=== PATIENT | female | born 1940 | race Caucasian/White ===

== ENCOUNTER → 2016-11-28 | Outpatient (CLI) | payer MEDICARE, BC ==
[2016-11-29 14:08] LABS: t-TRANSGLUTAMINASE (tTG) IgG 17 U/mL (0-5)
== END | disposition home or self-care (01) ==
LOC: LAB 11:04
PROVIDERS: Internal Medicine Gastroenterology
DX: R19.7 Diarrhea, unspecified (principal)

== ENCOUNTER → 2017-01-04 | Outpatient (CLI) | payer MEDICARE, BC ==
[2017-01-04 09:20] LABS: BASO % 0.3 % (0.0-1.0); EOS # 0.1 10*3/uL (0.0-0.4); HEMATOCRIT 37.5 % (37.0-47.0); LYMPH # 2.7 10*3/uL (1.3-4.4); MEAN CELL VOLUME 87.4 fl (81.0-99.0); MEAN PLATELET VOLUME 11.1 fl (9.6-12.3); MONO # 0.5 10*3/uL (0.1-1.0); MONO % 7.8 % (3.0-9.0); NEUT # 3.2 10*3/uL (2.3-7.9); NEUT % 48.7 % (47.0-73.0); PLATELET COUNT AUTOMATED 220 10*3/uL (130-400); RED BLOOD COUNT 4.29 10*6/uL (4.10-5.10); RED CELL DISTRI WIDTH 13.6 % (0-14.5); WHITE BLOOD COUNT 6.5 10*3/uL (4.8-10.8)
[2017-01-04 09:48] LABS: ALBUMIN 3.4 gm/dl (3.1-4.5); ALKALINE PHOSPHATASE 60 U/L (45-117); BILIRUBIN, DIRECT < 0.1 mg/dL (0.0-0.2); BILIRUBIN, TOTAL 0.3 mg/dl (0.2-1.0); BUN 15 mg/dl (7-24); CARBON DIOXIDE 30 mmol/L (21-32); CHLORIDE 105 mmol/L (98-107); CHOLESTEROL 213 mg/dL (<200); EST GLOM FILT AFRICAN AMERICAN > 60 ml/min; FREE T4 1.22 ng/dl (0.76-1.46); GLUCOSE 90 mg/dL (65-99); HDL CHOLESTEROL 82 mg/dl (40-60); LDL CHOLESTEROL 117 mg/dL (9-159); SGOT/AST 20 IU/L (3-35); SGPT/ALT 13 U/L (12-78); SODIUM 144 mmol/L (136-145); TOTAL PROTEIN 6.8 gm/dL (6.4-8.2); TRIGLYCERIDES 71 mg/dl (<150); VLDL CHOLESTEROL 14 mg/dL (6-40)
[2017-01-04 09:53] LABS: THYROID STIM HORMONE (HS) 0.236 uIU/ml (0.358-4.75)
== END | disposition home or self-care (01) ==
LOC: LAB 08:51
PROVIDERS: Family Medicine
DX: I10 Essential (primary) hypertension (principal); E03.9 Hypothyroidism, unspecified; E78.4 Other hyperlipidemia; E55.9 Vitamin D deficiency, unspecified; E89.0 Postprocedural hypothyroidism

== ENCOUNTER → 2017-03-29 | Outpatient (CLI) | payer MEDICARE, BC | END | disposition home or self-care (01) | LOC: US 03-28 09:30 → CARD 03-28 13:00 → US 09:09 | DX: I25.10 Atherosclerotic heart disease of native coronary artery without angina pectoris (principal); I65.23 Occlusion and stenosis of bilateral carotid arteries ==

== ENCOUNTER → 2018-11-08 | Day surgery (SDC) | payer MEDICARE, BC ==
[~2018-11-08] VITALS: Ht 154.9 cm; Wt 44.5 kg
[~2018-11-08] MED LIST: AMINOPHYLLIN200 MG PO; BUSPIRONE10 MG PO; CEFUROXIME AXE500 MG PO; CITALOPRAM20 MG PO; Clopidogrel75 MG PO; GAVISCON ES TA1 EACH PO; LEVOXYL75 MCG PO; LOMOTIL 2.5-0.1 EACH PO; LOPRESSOR25 MG PO; MEGESTROL625 MG/5 M PO; MIRTAZAPINE15 M2 PO; NAMENDA10 MG PO; OMEPRAZOLE40 MG PO; OXYBUTYNIN CHLOR5 M1 PO; PANTOPRAZOLE SO40 MG PO; PROTONIX20 MG PO; SEROQUEL25 MG PO; VITAMIN D-32000 UNI1 PO; ZANTAC 150150 MG PO
--- NOTE | ~2018-11-08 | PROC NOTE ---
[place], [place] PROCEDURE NOTE NAME: [facility]CKOY [facility] [id number] UNIT #: [id number] ROOM: DOCTOR: JOHNATHAN HODGES MD BIRTHDATE: [birth year] DOS: 11/08/2018 PREOPERATIVE DIAGNOSIS: Epigastric and substernal pain. POSTOPERATIVE DIAGNOSIS: Gastritis. PROCEDURE: EGD with antral biopsies x 2. ENDOSCOPIST: Johnathan Hodges M.D. ALLERGIST/PEDIATRIC PULMONOLOGIST: JANAY. ANESTHESIA: MAC. INDICATIONS: This is a 78-year-old lady here for a workup for epigastric and substernal pain. The procedure and its complications were explained to the patient and her daughter in detail preoperatively. Complications that were discussed included but were not limited to bleeding, missed lesions and stomach perforation. She agreed to proceed. DESCRIPTION OF PROCEDURE: After identifying the patient, the patient was brought to the endoscopy suite and placed in the left lateral position. After time-out procedure was called, IV sedation was administered by the anesthesia team. A bite block was placed. An adult gastroscope was introduced into the mouth and advanced sequentially into the pharynx, esophagus, stomach and the first 2 parts of the duodenum. There was found to be mild gastritis for which two antral biopsies were taken. The duodenum and the esophagus were within normal limits. The scope was then withdrawn and the patient was brought back to the recovery room in stable fashion. Based on these findings, the patient will be continued on her Prilosec as well as the Protonix and I will follow up on the biopsy results and let her know in 2 weeks when she follows up in the office. Johnathan Hodges MD CM:PROCNOTE:PROCEDURE NOTE [id number] JOHNATHAN HODGES MD
[2018-11-08 10:20] VITALS: BP 124/72
[2018-11-08 11:05] VITALS: BP 143/58
[2018-11-08 11:20] VITALS: BP 118/51
[2018-11-08 11:35] VITALS: BP 119/50
[2018-11-08 11:50] VITALS: BP 124/53
== END | disposition home or self-care (01) ==
LOC: SDC 11-05 09:30
DX: K29.50 Unspecified chronic gastritis without bleeding (principal); K21.9 Gastro-esophageal reflux disease without esophagitis; F32.9 Major depressive disorder, single episode, unspecified; F03.90 Unspecified dementia, unspecified severity, without behavioral disturbance, psychotic disturbance, mood disturbance, and anxiety; Z87.19 Personal history of other diseases of the digestive system; Z90.710 Acquired absence of both cervix and uterus; Z90.49 Acquired absence of other specified parts of digestive tract; Z98.890 Other specified postprocedural states; Z79.899 Other long term (current) drug therapy

== ENCOUNTER 2019-02-19 15:37 | Emergency (ER) | payer MEDICARE, BC ==
[~2019-02-19] VITALS: Ht 154.9 cm; Wt 42.6 kg
[2019-02-19 16:09] LABS: BASO % 0.3 % (0.0-1.0); EOS # 0.1 10*3/uL (0.0-0.4); EOS % 1.1 % (1.0-4.0); HEMATOCRIT 38.4 % (37.0-47.0); HEMOGLOBIN 12.4 g/dl (12.0-16.0); LYMPH # 2.9 10*3/uL (1.3-4.4); LYMPH % 41.6 % (27.0-41.0); MEAN CELL VOLUME 90.4 fl (81.0-99.0); MEAN CORPUSCULAR HGB 29.2 pg (27.0-31.0); MEAN CORPUSCULAR HGB CONC 32.3 g/dl (33.0-37.0); MEAN PLATELET VOLUME 10.9 fl (9.6-12.3); MONO # 0.6 10*3/uL (0.1-1.0); NEUT # 3.4 10*3/uL (2.3-7.9); NEUT % 48.7 % (47.0-73.0); PLATELET COUNT AUTOMATED 204 10*3/uL (130-400); RED BLOOD COUNT 4.25 10*6/uL (4.10-5.10); RED CELL DISTRI WIDTH 13.3 % (0-14.5)
[2019-02-19 16:22] LABS: CREATININE 1.11 mg/dL (0.55-1.02); POTASSIUM 4.4 mmol/L (3.5-5.1)
[2019-02-19 17:38] LABS: BILIRUBIN NEGATIVE (NEGATIVE); BLOOD NEGATIVE (NEGATIVE); CLARITY CLEAR (CLEAR); COLOR YELLOW (YELLOW); GLUCOSE NEGATIVE (NEGATIVE); KETONE NEGATIVE (NEGATIVE); LEUKO ESTERASE TRACE (NEGATIVE); NITRITE NEGATIVE (NEGATIVE); SPECIFIC GRAVITY <= 1.005 (1.005-1.030); UROBILINOGEN 0.2 E.U./dl (0.2-1.0)
[2019-02-19 17:44] LABS: BACTERIA TRACE
== END 2019-02-19 17:25 | disposition home or self-care (01) ==
LOC: ED 15:37
PROVIDERS: Emergency Medicine
DX: R51 Headache (principal); R41.0 Disorientation, unspecified; I25.10 Atherosclerotic heart disease of native coronary artery without angina pectoris; K21.9 Gastro-esophageal reflux disease without esophagitis; I10 Essential (primary) hypertension; F03.90 Unspecified dementia, unspecified severity, without behavioral disturbance, psychotic disturbance, mood disturbance, and anxiety; Z90.710 Acquired absence of both cervix and uterus; Z98.890 Other specified postprocedural states; Z90.49 Acquired absence of other specified parts of digestive tract; Z79.899 Other long term (current) drug therapy

== ENCOUNTER → 2019-07-03 | Outpatient (CLI) | payer MEDICARE, BC ==
[~2019-07-03] MED LIST changes: +BUSPIRONE HCL10 MG PO; +MIDODRINE HCL5 M1 PO; +QUETIAPINE FUMA25 MG PO
[2019-07-03 14:06] LABS: BASO % 0.5 % (0.0-1.0); EOS # 0.2 10*3/uL (0.0-0.4); EOS % 1.9 % (1.0-4.0); HEMATOCRIT 40.5 % (37.0-47.0); HEMOGLOBIN 12.8 g/dl (12.0-16.0); LYMPH # 2.8 10*3/uL (1.3-4.4); LYMPH % 31.3 % (27.0-41.0); MEAN CELL VOLUME 90.6 fl (81.0-99.0); MEAN CORPUSCULAR HGB 28.6 pg (27.0-31.0); MEAN CORPUSCULAR HGB CONC 31.6 g/dl (33.0-37.0); MEAN PLATELET VOLUME 10.5 fl (9.6-12.3); MONO # 0.9 10*3/uL (0.1-1.0); MONO % 10.6 % (3.0-9.0); NEUT # 4.9 10*3/uL (2.3-7.9); NEUT % 55.5 % (47.0-73.0); PLATELET COUNT AUTOMATED 233 10*3/uL (130-400); RED BLOOD COUNT 4.47 10*6/uL (4.10-5.10); RED CELL DISTRI WIDTH 12.9 % (0-14.5); WHITE BLOOD COUNT 8.8 10*3/uL (4.8-10.8)
[2019-07-03 14:22] LABS: ALBUMIN 3.5 gm/dl (3.1-4.5); CREATININE 1.13 mg/dL (0.55-1.02); POTASSIUM 3.8 mmol/L (3.5-5.1); TOTAL PROTEIN 7.2 gm/dL (6.4-8.2)
[2019-07-03 14:30] LABS: THYROID STIM HORMONE (HS) 0.8 uIU/ml (0.358-4.75)
[2019-07-03 15:01] LABS: BILIRUBIN NEGATIVE (NEGATIVE); BLOOD TRACE-LYSED (NEGATIVE); CLARITY SL CLOUDY (CLEAR); COLOR YELLOW (YELLOW); GLUCOSE NEGATIVE (NEGATIVE); KETONE NEGATIVE (NEGATIVE); LEUKO ESTERASE TRACE (NEGATIVE); NITRITE NEGATIVE (NEGATIVE); PH 6.5 (5.0-9.0); UROBILINOGEN 0.2 E.U./dl (0.2-1.0)
[2019-07-03 15:25] LABS: BACTERIA 1+; RBC 0-2 rbc/hpf (0-2)
== END | disposition home or self-care (01) ==
LOC: LAB 13:42
PROVIDERS: Nurse Practitioner Family
DX: R44.3 Hallucinations, unspecified (principal); E03.9 Hypothyroidism, unspecified; R30.0 Dysuria

== ENCOUNTER 2019-07-22 14:55 | Inpatient (IN) | payer MEDICARE, BC ==
[~2019-07-22] VITALS: Ht 154.9 cm; Wt 43.3 kg
[~2019-07-22 14:55] MED LIST changes: -BUSPIRONE HCL10 MG PO; -MIDODRINE HCL5 M1 PO; -QUETIAPINE FUMA25 MG PO
[2019-07-22 14:57] VITALS: BP 115/68
[2019-07-22 16:01] LABS: BASO % 0.5 % (0.0-1.0); EOS # 0.1 10*3/uL (0.0-0.4); EOS % 2.1 % (1.0-4.0); HEMATOCRIT 38.7 % (37.0-47.0); HEMOGLOBIN 12.7 g/dl (12.0-16.0); LYMPH # 2.5 10*3/uL (1.3-4.4); LYMPH % 38.2 % (27.0-41.0); MEAN CELL VOLUME 89.4 fl (81.0-99.0); MEAN CORPUSCULAR HGB 29.3 pg (27.0-31.0); MEAN CORPUSCULAR HGB CONC 32.8 g/dl (33.0-37.0); MONO # 0.6 10*3/uL (0.1-1.0); MONO % 9.2 % (3.0-9.0); NEUT # 3.3 10*3/uL (2.3-7.9); NEUT % 49.8 % (47.0-73.0); PLATELET COUNT AUTOMATED 201 10*3/uL (130-400); RED BLOOD COUNT 4.33 10*6/uL (4.10-5.10); RED CELL DISTRI WIDTH 12.6 % (0-14.5); WHITE BLOOD COUNT 6.6 10*3/uL (4.8-10.8)
[2019-07-22 16:15] VITALS: BP 109/69
[2019-07-22 16:15] LABS: ALBUMIN 3.5 gm/dl (3.1-4.5); ALKALINE PHOSPHATASE 61 U/L (45-117); BUN 23 mg/dl (7-24); CHLORIDE 105 mmol/L (98-107); CREATININE 1.16 mg/dL (0.55-1.02); LIPASE 158 U/L (73-393); POTASSIUM 4.2 mmol/L (3.5-5.1); SGOT/AST 21 IU/L (3-35); SGPT/ALT 18 U/L (12-78); SODIUM 140 mmol/L (136-145); TOTAL PROTEIN 6.8 gm/dL (6.4-8.2)
[2019-07-22 16:17] LABS: ACT PARTIAL THROMBO TIME 23.8 SECONDS (20.0-32.1)
[2019-07-22 16:18] LABS: TROPONIN I < 0.015 ng/ml (<0.045)
[2019-07-22 17:20] VITALS: BP 110/74
[2019-07-22 17:26] LABS: BILIRUBIN NEGATIVE (NEGATIVE); BLOOD TRACE-LYSED (NEGATIVE); CLARITY CLEAR (CLEAR); COLOR YELLOW (YELLOW); GLUCOSE NEGATIVE (NEGATIVE); KETONE NEGATIVE (NEGATIVE); LEUKO ESTERASE NEGATIVE (NEGATIVE); NITRITE NEGATIVE (NEGATIVE); SPECIFIC GRAVITY <= 1.005 (1.005-1.030); UROBILINOGEN 0.2 E.U./dl (0.2-1.0)
[2019-07-22 17:33] LABS: EPITHELIAL CELLS 21-30
[2019-07-22 17:34] LABS: HYALINE CAST 21-30; RBC 0-2 rbc/hpf (0-2); WBC 0-2 wbc/hpf (0-5)
[2019-07-22 18:30] VITALS: BP 112/62
--- NOTE | 2019-07-22 19:00 | NUR ---
BED NOT READY, WAITING FOR IT TO BE CLEANED.
--- NOTE | 2019-07-22 19:16 | NUR ---
NURSE TO NURSE REPORT GIVEN TO THIS RN.PT AWAITING BED ASSIGMENT FOR ADMISSION TO UNIT.
--- NOTE | 2019-07-22 19:23 | NUR ---
HELMET COVERER TOLD BY MAKE UP OPERATOR HELPER THAT PATIENT COULD COME IN UP 5 MINUTES, LINENS ARE BEING PUT ON THE BED
--- NOTE | 2019-07-22 19:23 | NUR ---
ADVISED BY CHOPPED STRAND OPERATOR ON UNIT ROOM IS BEING CLEANED AND WILL BE READY SHORTLY.
--- NOTE | 2019-07-22 19:27 | NUR ---
PT AND FAMILY DENY ANY OPEN WOUNDS OR SORES.
[2019-07-22 20:10] VITALS: BP 143/60
--- NOTE | 2019-07-22 20:10 | NUR ---
Time: 2009 A 79 year old FEMALE admitted to 5E under services of HUDSON ALVAREZ DO, Pt. arrived via stretcher from ER. Chief complaint: WEAKNESS. KAELA MILTON
--- NOTE | 2019-07-22 20:10 | NUR ---
NURSE TO NURSE GIVEN TO NARESH SHERWOOD AT BEDSIDE.PT TO UNIT VIA STRETCHER AT THIS TIME.
--- NOTE | 2019-07-22 20:12 | NUR ---
1L NS INFUSION COMPLETED.
--- NOTE | 2019-07-22 21:02 | NUR ---
DR BARNARD AWARE OF CONSULT. STATES DR LINARES WILL SEE PATIENT IN THE MORNING. NO ORDERS TAKEN AT THIS TIME
[2019-07-22] MEDS ORDERED: OMEPRAZOLE40 MG PO (22:13)
[2019-07-22] MEDS ORDERED: BUSPIRONE HCL10 MG PO (22:15)
[2019-07-22] MEDS ORDERED: CITALOPRAM20 MG PO (22:20)
[2019-07-22] MEDS ORDERED: QUETIAPINE FUMA25 MG PO (22:21)
--- NOTE | 2019-07-22 22:24 | NUR ---
MED REC COMPLETED WITH LIST FROM HOME. COPY MADE AND PLACED ON CHART. DR VEGA AWARE
--- NOTE | 2019-07-22 22:57 | NUR ---
DR VEGA AWARE OF POSITIVE ORTHOS.
--- NOTE | 2019-07-22 22:57 | NUR ---
THIS RN AND NARESH RANKIN CHECKED SACRUM FOR DTI. NOTHING SEEN
[2019-07-23] VITALS: BP 110/49
--- NOTE | 2019-07-23 02:16 | NUR ---
PATIENT RESTING IN BED WITH EYES CLOSED. NO S/S OF DISTRESS. BED ALARM ON, BED IN LOW POSITION, CALL LIGHT IN REACH
[2019-07-23 06:23] LABS: BASO % 0.3 % (0.0-1.0); EOS # 0.2 10*3/uL (0.0-0.4); EOS % 2.8 % (1.0-4.0); HEMATOCRIT 33.2 % (37.0-47.0); HEMOGLOBIN 10.9 g/dl (12.0-16.0); LYMPH # 2.6 10*3/uL (1.3-4.4); LYMPH % 42.1 % (27.0-41.0); MEAN CELL VOLUME 88.1 fl (81.0-99.0); MEAN CORPUSCULAR HGB 28.9 pg (27.0-31.0); MEAN CORPUSCULAR HGB CONC 32.8 g/dl (33.0-37.0); MEAN PLATELET VOLUME 11.2 fl (9.6-12.3); MONO # 0.6 10*3/uL (0.1-1.0); MONO % 9.5 % (3.0-9.0); NEUT # 2.8 10*3/uL (2.3-7.9); NEUT % 45.1 % (47.0-73.0); PLATELET COUNT AUTOMATED 178 10*3/uL (130-400); RED BLOOD COUNT 3.77 10*6/uL (4.10-5.10); RED CELL DISTRI WIDTH 12.8 % (0-14.5); WHITE BLOOD COUNT 6.1 10*3/uL (4.8-10.8)
[2019-07-23 06:49] LABS: BUN 16 mg/dl (7-24); CHLORIDE 109 mmol/L (98-107); POTASSIUM 3.6 mmol/L (3.5-5.1); SODIUM 141 mmol/L (136-145)
[2019-07-23 07:03] LABS: FREE T4 1.02 ng/dl (0.76-1.46); PHOSPHOROUS 3.4 mg/dL (2.5-4.9)
[2019-07-23 08:00] VITALS: BP 122/56
--- NOTE | 2019-07-23 08:01 | NUR ---
PHYSICAL THERAPY Screen received as well as orders for Physical Therapy will follow Flor Evangelista PT
--- NOTE | 2019-07-23 08:06 | NUR ---
Face to face encounter with Dr. Maldonado see new orders.
--- NOTE | 2019-07-23 09:00 | NUR ---
case management visits with patient, daughter present, patient unable at this time to answer any questions, daughter present stated that her mom lives with her sister and the sister would be in this morning and would answer any questions. case management will see later today when the daughter Aung is present
--- NOTE | 2019-07-23 11:05 | NUR ---
Pupil Personnel Worker in to talk to patient. Patient states lives at home with daughter. There are few steps in the home. Physician: julissa lu Pharmacy: [facility] Home health services: none Patient's level of ADLs: MINIMAL ASSIST Patient has working utilities: all working DME: walker Follow-up physician's appointment after d/c: will be made by hospitalist nurse director upon discharge Does patient want to access PORTAL?: no Discharge plan discussed with daughter Aung, patient lives at home with her, she uses a walker for ambulation and requires assistance with adls, discussed with them patient having numerous falls. educated her on area skilled nursings for 5 days of physical therapy and occupational therapy and 24 hour care. Aung stated she did not want her mom going to a skilled facility at this time, also educated her on VNA, Aung stated they had VNA services prevously and would like them again, given choice of companies she chose [facility], will send a referral to [facility] for when patient is medically stable for discharge, case management will follow. JAVON WEBSTER
[2019-07-23 12:00] VITALS: BP 137/56
--- NOTE | 2019-07-23 13:38 | NUR ---
Consults called for for med management and [facility] magen.
--- NOTE | 2019-07-23 14:15 | NUR ---
Occupational Therapy evaluation completed on 5 with full eval to follow. Precautions include fall risk;bed/chair alarm,generalized weakness, dementia, poor stand balance, new ww use per dtr, moderate complexity level 40017. Recommend OT per POC and SNF upon d/c. Daughter insists upon home w/ home health. Recommend home w/ 24hr supervision/assist and home h ealth SN,OT/PT. Thank you. Rekha Goldstein OTR/l
--- NOTE | 2019-07-23 14:42 | NUR ---
PHYSICAL THERAPY Rita completed full report to follow recomend SNF at discharge however per daughter Aung will take her mother home and is agreeable to HH at this time. PT to work on transfers, strenghthening, amb with FWW, balance and safety. Thank you Flor Evangelista PT
[2019-07-23 16:00] VITALS: BP 128/49
--- NOTE | 2019-07-23 19:32 | NUR ---
PATIENT SITTING IN CHAIR AT BEDSIDE. DAUGHTER TOMMY PRESENT. PATIENT DENIES ANY NEEDS AT THIS TIME. BODY ALARM INTACT. CALL LIGHT IN REACH
[2019-07-23 20:00] VITALS: BP 164/72
[2019-07-24] VITALS: BP 139/64
--- NOTE | 2019-07-24 00:36 | NUR ---
PATIENT SET BED ALARM OFF AGAIN. UPON ENTERING ROOM PATIENT WAS ON THE FLOOR. VITALS STABLE AND DR ALONZO NOTIFIED. PATIENT STATES SHE HIT HER HEAD ON THE WALL. PATIENT ASSISTED BACK TO BED. 1:1 SITTER ORDERED BY DOCTOR
[2019-07-24 00:38] VITALS: BP 165/76
--- NOTE | 2019-07-24 00:45 | NUR ---
DR VEGA AWARE OF PATIENT C/O "HEAD HURTING REALLY BAD". STATES TO CHANGE HEAD CT TO STAT
--- NOTE | 2019-07-24 00:52 | NUR ---
DAUGHTER TOMMY NOTIFIED OF FALL
--- NOTE | 2019-07-24 01:00 | NUR ---
SECOND ATTEMPT MADE TO CT SCAN. NO ANSWER
--- NOTE | 2019-07-24 01:27 | NUR ---
PATIENT BACK FROM CT SCAN. SITTING IN KRISTA-CHAIR AT NURSES STATION WITH THIS RN
--- NOTE | 2019-07-24 01:58 | NUR ---
PATIENT DENYING TYLENOL FOR HEADACHE AT THIS TIME.
--- NOTE | 2019-07-24 02:29 | NUR ---
PATIENT REMAINS IN LUCRECIA-CHAIR AT NURSES STATION. GETTING INCREASINGLY AGITATED AND TRYING TO REMOVE THE TABLE TO THE LUCRECIA-CHAIR. PATIENT STATES "I HAVE TO GO ACROSS THE STREET TO MY HOUSE. I HAVE OBLIGATIONS". ATTEMPTED TO REORIENT PATIENT TO TIME AND PLACE. PATIENT STATES "YOU CANNOT TELL ME WHAT TO DO".
--- NOTE | 2019-07-24 03:56 | NUR ---
24 HR chart check completed.
--- NOTE | 2019-07-24 06:32 | NUR ---
DAUGHTER TOMMY AT BEDSIDE. PATIENT BACK IN ROOM IN RECLINER CHAIR WITH BODY ALARM. TOMMY STATES WHILE SHE IS PRESENT IN THE ROOM SHE DOES NOT WANT THE 1:1 SITTER. JOB ESTIMATOR MADE AWARE
[2019-07-24 06:59] LABS: BASO % 0.5 % (0.0-1.0); EOS # 0.1 10*3/uL (0.0-0.4); EOS % 1.2 % (1.0-4.0); HEMATOCRIT 34.7 % (37.0-47.0); HEMOGLOBIN 11.4 g/dl (12.0-16.0); LYMPH # 2.4 10*3/uL (1.3-4.4); LYMPH % 31.6 % (27.0-41.0); MEAN CELL VOLUME 88.1 fl (81.0-99.0); MEAN CORPUSCULAR HGB 28.9 pg (27.0-31.0); MEAN CORPUSCULAR HGB CONC 32.9 g/dl (33.0-37.0); MEAN PLATELET VOLUME 11.3 fl (9.6-12.3); MONO # 0.7 10*3/uL (0.1-1.0); MONO % 8.8 % (3.0-9.0); NEUT # 4.4 10*3/uL (2.3-7.9); NEUT % 57.6 % (47.0-73.0); PLATELET COUNT AUTOMATED 197 10*3/uL (130-400); RED BLOOD COUNT 3.94 10*6/uL (4.10-5.10); RED CELL DISTRI WIDTH 12.9 % (0-14.5); WHITE BLOOD COUNT 7.6 10*3/uL (4.8-10.8)
[2019-07-24 07:19] LABS: BUN 7 mg/dl (7-24); CHLORIDE 109 mmol/L (98-107); CREATININE 0.86 mg/dL (0.55-1.02); POTASSIUM 3.7 mmol/L (3.5-5.1); SODIUM 140 mmol/L (136-145)
[2019-07-24 08:00] VITALS: BP 158/55
--- NOTE | 2019-07-24 09:00 | NUR ---
case management visits with patient, daughter Aung present, she states patient is possibly being discharged to home today, she will transport patient when discharged, case management will notify [facility] when patient is discharged, daughter denies any other home needs
--- NOTE | 2019-07-24 09:46 | NUR ---
OT NOTE Pt was seen this A.M. 1:1 for 15 minute OT session. Upon arrival pt was sitting upright in the recliner. Pt identified by name and and had no complaints at this time. Sit to stand completed from chair level with Alice and use of w/w for UE support. Upon inital rise pt had LOB backwards that required Alice to correct. Functional mobility was then completed into the bathroom with Alice and use of w/w, pt required verbal and tactile prompts for walker safety,, navigation, and for wider base of support. Pt transferred on/off standard commode with Alice. Functional mobility then completed back to the recliner where she was left sitting uproght with call light in hand, tray table in place, and body alarm activated for safety. Continue with rec D/C plan to SNF. TAYE Floyd/Erich
[2019-07-24] MEDS ORDERED: SEROQUEL25 MG PO (10:47)
[2019-07-24] MEDS ORDERED: MIDODRINE HCL5 M1 PO (10:47)
--- NOTE | 2019-07-24 10:47 | NUR ---
PHYSICAL THERAPY Patient presented to therapy in sitting in bedside chair bartolome rayo two daughters visiting with her in the room. Patient has chair alarm attached and report of no pain. Patient is pleasantly confused. Patient was identified by name and on wristband. Patient's daughter says that the patient is more confused than usual and weaker than normal. They also said she was Independent at home before this happenned. Patient performed sit to stand out of bedside chair with MIN A X 2 with verbal cues for proper hand placement and scooting to edge of chair before standing. Patient ambulated with Wh Walker and CGA X 1 with other therapist managing the IV pole that is infusing for 60' x 1. Patient required constand verbal cues and visual demonstrations of wider ROB due to the patient ambulating with feet too close together. Patient had a few episodes where she lost balance and became retro-grade back on her heels. This required MIN A X 1 to correct LOB. Patient transferred back TO BEDSIDE CHAIR and sat wit hMIN A X 1 and verbal cues for letting go of walker and putting hands back on the chair armrests. Patient sits with her knees locked into extension which creates a fall risk. Patient is pleasantly confused. Patient was left with call light within reach, chair alarm tested and attached to patient and two daughters visiting in the room. Patient was left with PCT CLYDE. Patient was 1:1 with this EXPANDER for 18 minutes total. LEFT ROOM AT 9:46 AM. MARYCRUZ THOMPSON EXPANDER
--- NOTE | 2019-07-24 11:40 | NUR ---
Discharge instructions reviewed with patient/family. Patient receptive and verbalizes understanding. Follow-up care arranged. Written instructions given to patient/family. TONY CHINCHILLA
[2019-07-24 11:54] VITALS: BP 141/67
--- NOTE | 2019-07-24 12:28 | NUR ---
case management notified Aliya at [facility] that patient is being discharged to home today
--- NOTE | 2019-07-25 08:00 | NUR ---
PHYSICAL THERAPY CO-SIGN I approve of the Physical Therapy notes written above. Flor Evangelista PT
== END 2019-07-24 11:40 | disposition home health service (06) | DRG 391 ==
LOC: ED 14:55 → 5E 17:45 → EDHOLD 17:45 → 5E 18:12
PROVIDERS: Emergency Medicine; Internal Medicine; ADMIT Internal Medicine
DX: K21.9 Gastro-esophageal reflux disease without esophagitis (principal); N17.0 Acute kidney failure with tubular necrosis; G93.41 Metabolic encephalopathy; F03.91 Unspecified dementia, unspecified severity, with behavioral disturbance; Z68.1 Body mass index [BMI] 19.9 or less, adult; E86.0 Dehydration; R91.8 Other nonspecific abnormal finding of lung field; R26.81 Unsteadiness on feet; I25.10 Atherosclerotic heart disease of native coronary artery without angina pectoris; L98.429 Non-pressure chronic ulcer of back with unspecified severity; E83.41 Hypermagnesemia; K58.9 Irritable bowel syndrome, unspecified; R63.4 Abnormal weight loss; E03.9 Hypothyroidism, unspecified; F32.9 Major depressive disorder, single episode, unspecified; I10 Essential (primary) hypertension; D64.9 Anemia, unspecified; I95.1 Orthostatic hypotension; T50.995A Adverse effect of other drugs, medicaments and biological substances, initial encounter; Y92.89 Other specified places as the place of occurrence of the external cause; Z91.81 History of falling; Z87.440 Personal history of urinary (tract) infections; Z90.49 Acquired absence of other specified parts of digestive tract; Z98.891 History of uterine scar from previous surgery; Z90.710 Acquired absence of both cervix and uterus; Z90.79 Acquired absence of other genital organ(s); Z90.722 Acquired absence of ovaries, bilateral; Z81.1 Family history of alcohol abuse and dependence; Z79.899 Other long term (current) drug therapy; Z79.02 Long term (current) use of antithrombotics/antiplatelets

== ENCOUNTER 2020-01-13 10:20 | Inpatient (IN) | payer MEDICARE, BC ==
[~2020-01-13] VITALS: Ht 149.8 cm; Wt 39.9 kg
[~2020-01-13 10:20] MED LIST changes: +BUSPIRONE HCL10 MG PO; +MIDODRINE HCL5 M1 PO; +QUETIAPINE FUMA25 MG PO
[2020-01-13 10:35] VITALS: BP 116/63
[2020-01-13 12:09] LABS: BASO % 0.4 % (0.0-1.0); EOS % 0.5 % (1.0-4.0); HEMATOCRIT 41.3 % (37.0-47.0); LYMPH # 2.3 10*3/uL (1.3-4.4); LYMPH % 30.6 % (27.0-41.0); MEAN CELL VOLUME 89.2 fl (81.0-99.0); MEAN CORPUSCULAR HGB 29.2 pg (27.0-31.0); MEAN CORPUSCULAR HGB CONC 32.7 g/dl (33.0-37.0); MEAN PLATELET VOLUME 10.7 fl (9.6-12.3); MONO # 0.6 10*3/uL (0.1-1.0); MONO % 7.6 % (3.0-9.0); NEUT # 4.6 10*3/uL (2.3-7.9); NEUT % 60.6 % (47.0-73.0); PLATELET COUNT AUTOMATED 238 10*3/uL (130-400); RED BLOOD COUNT 4.63 10*6/uL (4.10-5.10); RED CELL DISTRI WIDTH 13.3 % (0-14.5); WHITE BLOOD COUNT 7.6 10*3/uL (4.8-10.8)
--- NOTE | 2020-01-13 12:15 | NUR ---
ATTEMPTED TO COLLECT URINE SPECIMEN. PT STATES THAT SHE IS UNABLE TO URINATE AT THIS TIME. BEDSIDE COMMODE IN PLACE. WILL CONTINUE TO MONITOR.
[2020-01-13 12:20] LABS: ACT PARTIAL THROMBO TIME 23.6 SECONDS (20.0-32.1)
[2020-01-13 12:23] LABS: ALBUMIN 3.9 gm/dl (3.1-4.5); ALKALINE PHOSPHATASE 60 U/L (45-117); BUN 20 mg/dl (7-24); CHLORIDE 104 mmol/L (98-107); CREATININE 1.14 mg/dL (0.55-1.02); LIPASE 127 U/L (73-393); SGOT/AST 20 IU/L (3-35); SGPT/ALT 14 U/L (12-78); SODIUM 138 mmol/L (136-145); TOTAL PROTEIN 7.3 gm/dL (6.4-8.2)
[2020-01-13 12:27] LABS: TROPONIN I < 0.015 ng/ml (<0.045)
[2020-01-13 14:00] LABS: BILIRUBIN 1+ (NEGATIVE); BLOOD 1+ (NEGATIVE); CLARITY CLEAR (CLEAR); COLOR YELLOW (YELLOW); GLUCOSE NEGATIVE (NEGATIVE); KETONE 1+ (NEGATIVE); LEUKO ESTERASE 3+ (NEGATIVE); NITRITE NEGATIVE (NEGATIVE); UROBILINOGEN 0.2 E.U./dl (0.2-1.0)
[2020-01-13 14:01] LABS: RBC 0-2 rbc/hpf (0-2)
[2020-01-13 14:02] LABS: BACTERIA 1+
[2020-01-13 16:00] VITALS: BP 110/67
[2020-01-13 16:10] VITALS: BP 147/64
--- NOTE | 2020-01-13 16:10 | NUR ---
ER DENIED ANY WOUNDS. PT FOUND TO HAVE 2 TO FACE. PT IS CONFUSED AND CONSENT FOR PHOTOS FROM ER WAS NOT SIGNED, THEREFORE UNABLE TO PHOTO. WOUNDS DOCUMENTED IN DI SCREEN.
--- NOTE | 2020-01-13 16:10 | NUR ---
A 79, admitted to 5E, under the services of SADIA Yang DO with a diagnosis of UTI, DEHYDRATION. Chief complaint is FELL AT HOME. Patient arrived via stretcher from ER. Monitor applied. Initial assessment completed. Vital signs taken and recorded. SADIA YANG DO notified of admission to the unit. Orders received. See assessment for past medical history, medications and allergies. Patient and/or family oriented to unit. [address] visitation policy reviewed. Clothing/patient valuable form completed. GEOVANY ALEXANDER
[2020-01-13] MEDS ORDERED: QUETIAPINE FUMA25 MG PO (16:40)
--- NOTE | 2020-01-13 19:00 | NUR ---
AWAITING WOUND CARE ORDERS FOR FACIAL ABRASIONS.
[2020-01-13 20:00] VITALS: BP 136/66
--- NOTE | 2020-01-13 20:00 | NUR ---
PATIENT PLEASANTLY CONFUSED. ALERT TO SELF ONLY. CONTINUES TO CRAWL OUT OF BED AND WANTS TO LEAVE. REORIENTED FREQUENTLY. VOICES NO COMPLAINTS. BED IN LOWEST POSITION,CALL LIGHT WITHIN REACH. BED ALARM ON.
[2020-01-14] VITALS: BP 119/55
[2020-01-14 08:00] VITALS: BP 145/71
[2020-01-14 08:04] LABS: BASO % 0.4 % (0.0-1.0); EOS # 0.1 10*3/uL (0.0-0.4); EOS % 0.9 % (1.0-4.0); HEMATOCRIT 35.9 % (37.0-47.0); LYMPH # 2.5 10*3/uL (1.3-4.4); LYMPH % 32.1 % (27.0-41.0); MEAN CELL VOLUME 90.4 fl (81.0-99.0); MEAN CORPUSCULAR HGB 29.2 pg (27.0-31.0); MEAN CORPUSCULAR HGB CONC 32.3 g/dl (33.0-37.0); MEAN PLATELET VOLUME 11.8 fl (9.6-12.3); MONO # 0.6 10*3/uL (0.1-1.0); MONO % 8.1 % (3.0-9.0); NEUT # 4.5 10*3/uL (2.3-7.9); NEUT % 58.2 % (47.0-73.0); PLATELET COUNT AUTOMATED 206 10*3/uL (130-400); RED BLOOD COUNT 3.97 10*6/uL (4.10-5.10); RED CELL DISTRI WIDTH 13.2 % (0-14.5); WHITE BLOOD COUNT 7.8 10*3/uL (4.8-10.8)
[2020-01-14 08:15] LABS: BUN 16 mg/dl (7-24); CHLORIDE 110 mmol/L (98-107); CHOLESTEROL 207 mg/dL (<200); CREATININE 0.83 mg/dL (0.55-1.02); HDL CHOLESTEROL 62 mg/dl (40-60); LDL CHOLESTEROL 132 mg/dL (9-159); POTASSIUM 3.7 mmol/L (3.5-5.1); SODIUM 144 mmol/L (136-145); TRIGLYCERIDES 67 mg/dl (<150); VLDL CHOLESTEROL 13 mg/dL (6-40)
--- NOTE | 2020-01-14 08:53 | NUR ---
Patient resting quietly with no c/o discomfort. Respirations easy and regular. Vital signs stable. No overt distress. GEOVANY ALEXANDER
--- NOTE | 2020-01-14 08:54 | NUR ---
MCKOYGWENDOLYN [id number] Please refer to the physician's history and physical for past medical history, comorbid conditions, and allergies. Diagnosis: UTI DEHYDRATION Valente Score: 16,AT RISK WOUND DESCRIPTIONS: This nurse along with with Ana Maria Vyas RN evaluated patient for skin impairments. Wound Number: 1 Location of the wound: right cheek Type of wound: Scab Thickness: Partial Size: 0.4cm x 0.2cm x 0.1cm Tunneling: none Undermining: none Sinus Tract: none Presence of Exudate: none Amount: None Color: Red Odor: None Periwound Skin Appearance: Normal Wound edges: approximated Pain (associated with wound): none at time of assessment How does patient state this happened? pt stated she fell Wound Number: 2 Location of the wound: bridge of nose Type of wound: Scab Thickness: Partial Size: 0.3cm x 0.3cm x 0.1cm Tunneling: none Undermining: none Sinus Tract: none Presence of Exudate: none Amount: none Color: Red Odor: None Periwound Skin Appearance: Normal Wound edges: approximated Pain (associated with wound): none at time of assessment How does patient state this happened? pt stated she fell Surface the patient is resting on: Isoflex SKIN PREVENTION RECOMMENDATION: 1. Pressure redistribution support surface as appropriate 2. Elevate heels 3. Remove boots/TEDS every shift and reapply 4. Head of bed 30 degrees as tolerated 5. Assess nutrition and hydration 6. Manage moisture 7. Avoid the use of containment devices while in bed 8. Use absorptive products on surfaces limit layers of linens on bed 9. Turn and reposition every 1-2 hours in bed and every 1 hour in chair as tolerated 10. Weight shifts every 15 minutes while up in chair 11. Offloading with pillows or device to keep heels elevated off bed 12. Monitor skin at least every shift 13. Inspect under medical devices twice a day WOUND TREATMENT RECOMMENDATIONS: cleanse right cheek and bridge of nose with nss and apply bacitracin ointment and leave open to air tid.
--- NOTE | 2020-01-14 09:00 | NUR ---
DR PALOMINO REMINDED OF NEED FOR WOUND CARE ORDERS.
--- NOTE | 2020-01-14 09:30 | NUR ---
DAUGHTER/POA UPDATED ON PT'S CONDITION.
[2020-01-14 10:10] LABS: VITAMIN D, 25-HYDROXY 94.6 ng/mL (30-100)
--- NOTE | 2020-01-14 10:56 | NUR ---
Dr. Ugalde notified of wound care recommendations.
--- NOTE | 2020-01-14 10:57 | NUR ---
PHYSICAL THERAPY Physical Therapy evaluation completed on 4E with full evaluation to follow. Moderate complexity PT evaluation per chart review and evaluation, [id number]. Recommend physical therapy per plan of care and SNF upon discharge. Thank you for this referral. Shaina Thurston,PT,DPT.
[2020-01-14 12:00] VITALS: BP 129/57
--- NOTE | 2020-01-14 12:51 | NUR ---
Occupational Therapy evaluation completed on 5E with full evaluation to follow. Recommend occupational therapy per plan of care and SNF upon discharge. Thank you for this referral. Chapis Miller OTR/L
--- NOTE | 2020-01-14 14:58 | NUR ---
Associate Broker in to talk to patient. Patient states lives at HOME with DAUGHTER. There are FEW steps in the home. Physician: LEON MONROY [facility] Home health services: NONE Patient's level of ADLs: MODERATE ASSIST Patient has working utilities: YES DME: NONE Follow-up physician's appointment after d/c: WILL BE MADE BY HOSPITALIST NURSE DIRECTOR ON DISCHARGE Does patient want to access PORTAL?: NO Discharge plan PT LIVES AT HOME WITH HER DAUGHTER WHO CARES FOR HER. PT IS VERY CONFUSED. WILL CONTACT DAUGHTER TO DISCUSS DISCHARGE PLANS. WILL CONTINUE TO FOLLOW.. LUCAS OLVERA
--- NOTE | 2020-01-14 15:29 | NUR ---
Nutritional Support Services Note: Pt is confused. Scratches noted to right eye and bridge of nose. Appetite is good for meals, she receives a regular diet as ordered with Ensure po TId with meals. Staff to assist with meals and encourage intake. Assist as needed. No other nutrition intervention needed at this time. Will follow if needed. Estela Warren Rdn Ld
--- NOTE | 2020-01-14 15:30 | NUR ---
PT AT DESK IN [place]CR[place]IA CHAIR FOR EXCESSIVE ATTEMPTS AND SUCCESSES AT JESENIA THOMAS.
[2020-01-14 16:00] VITALS: BP 158/64
--- NOTE | 2020-01-14 19:00 | NUR ---
ASSUMED CARE FOR THIS PT AT THIS TIME. PT SITTING IN [place] CHAIR AT NURSES STATION. NO C/O VOICED PER PT.
[2020-01-14 20:00] VITALS: BP 122/64
[2020-01-15] VITALS: BP 105/52
--- NOTE | 2020-01-15 03:41 | NUR ---
Recommend follow up for wound care in outpatient setting patient refused at this time.
[2020-01-15 06:01] LABS: BASO % 0.4 % (0.0-1.0); EOS # 0.1 10*3/uL (0.0-0.4); EOS % 1.5 % (1.0-4.0); HEMATOCRIT 37.6 % (37.0-47.0); LYMPH # 3.1 10*3/uL (1.3-4.4); LYMPH % 39.9 % (27.0-41.0); MEAN CELL VOLUME 88.9 fl (81.0-99.0); MEAN CORPUSCULAR HGB 29.1 pg (27.0-31.0); MEAN CORPUSCULAR HGB CONC 32.7 g/dl (33.0-37.0); MEAN PLATELET VOLUME 11.6 fl (9.6-12.3); MONO # 0.7 10*3/uL (0.1-1.0); NEUT # 3.8 10*3/uL (2.3-7.9); NEUT % 48.9 % (47.0-73.0); PLATELET COUNT AUTOMATED 213 10*3/uL (130-400); RED BLOOD COUNT 4.23 10*6/uL (4.10-5.10); RED CELL DISTRI WIDTH 13.4 % (0-14.5); WHITE BLOOD COUNT 7.8 10*3/uL (4.8-10.8)
[2020-01-15 06:02] LABS: BUN 13 mg/dl (7-24); CHLORIDE 108 mmol/L (98-107); CREATININE 0.79 mg/dL (0.55-1.02); POTASSIUM 3.6 mmol/L (3.5-5.1); SODIUM 142 mmol/L (136-145)
--- NOTE | 2020-01-15 06:22 | NUR ---
PT SLEPT SOUNDLY IN BED THIS SHIFT. NO ATTEMPTS TO ARISE UNASSISTED. BED IN LOW POSITION W/WHEELS LOCKED AND ALARM ON. CALL LIGHT IN REACH.
[2020-01-15 08:00] VITALS: BP 138/78
--- NOTE | 2020-01-15 11:30 | NUR ---
Discharge instructions reviewed with patient/family. Patient receptive and verbalizes understanding. Follow-up care arranged. Written instructions given to patient/family. LV YUSUF
--- NOTE | 2020-01-15 12:49 | NUR ---
REFERRAL FAXED TO [facility].
== END 2020-01-15 11:30 | disposition home health service (06) | DRG 914 ==
LOC: ED 10:20 → 5E 14:36
PROVIDERS: Family Medicine; Nurse Practitioner Family; ADMIT Family Medicine
DX: S09.93XA Unspecified injury of face, initial encounter (principal); N39.0 Urinary tract infection, site not specified; E86.0 Dehydration; S00.03XA Contusion of scalp, initial encounter; R26.81 Unsteadiness on feet; E83.41 Hypermagnesemia; R63.0 Anorexia; I25.10 Atherosclerotic heart disease of native coronary artery without angina pectoris; F03.90 Unspecified dementia, unspecified severity, without behavioral disturbance, psychotic disturbance, mood disturbance, and anxiety; F32.9 Major depressive disorder, single episode, unspecified; K21.9 Gastro-esophageal reflux disease without esophagitis; I10 Essential (primary) hypertension; E03.9 Hypothyroidism, unspecified; I95.1 Orthostatic hypotension; K58.9 Irritable bowel syndrome, unspecified; L89.151 Pressure ulcer of sacral region, stage 1; W19.XXXA Unspecified fall, initial encounter; Y92.009 Unspecified place in unspecified non-institutional (private) residence as the place of occurrence of the external cause; Y93.89 Activity, other specified; Y99.8 Other external cause status; Z90.710 Acquired absence of both cervix and uterus; Z90.722 Acquired absence of ovaries, bilateral; Z81.1 Family history of alcohol abuse and dependence; Z79.899 Other long term (current) drug therapy

== ENCOUNTER 2020-03-12 16:07 | Emergency (ER) | payer MEDICARE, BC ==
[~2020-03-12] VITALS: Ht 154.9 cm; Wt 41.7 kg
[2020-03-12] MEDS ORDERED: MIRALAX POWDER17 G1 PO (17:03)
== END 2020-03-12 18:00 | disposition home or self-care (01) ==
LOC: ED 16:07
DX: K59.00 Constipation, unspecified (principal); I12.9 Hypertensive chronic kidney disease with stage 1 through stage 4 chronic kidney disease, or unspecified chronic kidney disease; N18.9 Chronic kidney disease, unspecified; I25.10 Atherosclerotic heart disease of native coronary artery without angina pectoris; E03.9 Hypothyroidism, unspecified; K21.9 Gastro-esophageal reflux disease without esophagitis; Z79.899 Other long term (current) drug therapy

== ENCOUNTER 2020-04-22 04:00 | Emergency (ER) | payer MEDICARE, BC ==
[~2020-04-22] VITALS: Wt 39.6 kg
[~2020-04-22 04:00] MED LIST changes: +MIRALAX POWDER17 G1 PO
== END 2020-04-22 05:46 | disposition home or self-care (01) ==
LOC: ED 04:00
DX: S30.0XXA Contusion of lower back and pelvis, initial encounter (principal); S09.90XA Unspecified injury of head, initial encounter; I25.10 Atherosclerotic heart disease of native coronary artery without angina pectoris; I12.9 Hypertensive chronic kidney disease with stage 1 through stage 4 chronic kidney disease, or unspecified chronic kidney disease; N18.9 Chronic kidney disease, unspecified; K21.9 Gastro-esophageal reflux disease without esophagitis; E03.9 Hypothyroidism, unspecified; Z79.899 Other long term (current) drug therapy; W01.0XXA Fall on same level from slipping, tripping and stumbling without subsequent striking against object, initial encounter; Y93.89 Activity, other specified; Y92.89 Other specified places as the place of occurrence of the external cause; Y99.8 Other external cause status

== ENCOUNTER 2020-04-25 10:43 | Emergency (ER) | payer MEDICARE, BC ==
[2020-04-25 11:26] LABS: BASO % 0.3 % (0.0-1.0); EOS # 0.1 10*3/uL (0.0-0.4); EOS % 1.8 % (1.0-4.0); HEMATOCRIT 39.1 % (37.0-47.0); LYMPH # 2.1 10*3/uL (1.3-4.4); LYMPH % 34.5 % (27.0-41.0); MEAN CELL VOLUME 88.3 fl (81.0-99.0); MEAN CORPUSCULAR HGB 27.8 pg (27.0-31.0); MEAN CORPUSCULAR HGB CONC 31.5 g/dl (33.0-37.0); MEAN PLATELET VOLUME 10.5 fl (9.6-12.3); MONO # 0.5 10*3/uL (0.1-1.0); MONO % 8.3 % (3.0-9.0); NEUT # 3.4 10*3/uL (2.3-7.9); NEUT % 54.8 % (47.0-73.0); PLATELET COUNT AUTOMATED 214 10*3/uL (130-400); RED BLOOD COUNT 4.43 10*6/uL (4.10-5.10); RED CELL DISTRI WIDTH 13.2 % (0-14.5); WHITE BLOOD COUNT 6.1 10*3/uL (4.8-10.8)
[2020-04-25 11:37] LABS: BUN 18 mg/dl (7-24); CHLORIDE 105 mmol/L (98-107); CREATININE 0.95 mg/dL (0.55-1.02); POTASSIUM 3.9 mmol/L (3.5-5.1); SODIUM 140 mmol/L (136-145)
[2020-04-25 12:00] LABS: BILIRUBIN NEGATIVE; CLARITY CLEAR (CLEAR); COLOR YELLOW (YELLOW); GLUCOSE NEGATIVE; KETONE NEGATIVE; SPECIFIC GRAVITY < 1.005 (1.001-1.030)
[2020-04-25 12:01] LABS: BLOOD TRACE-LYSED (NEGATIVE); EPITHELIAL CELLS 0-2; LEUKO ESTERASE NEGATIVE (NEGATIVE); NITRITE NEGATIVE (NEGATIVE); RBC 0-2 rbc/hpf (0-2); UROBILINOGEN 0.2 E.U./dl (0.0-1.0)
== END 2020-04-25 12:54 | disposition home or self-care (01) ==
LOC: ED 10:43
PROVIDERS: Emergency Medicine
DX: R41.0 Disorientation, unspecified (principal); R53.1 Weakness; I12.9 Hypertensive chronic kidney disease with stage 1 through stage 4 chronic kidney disease, or unspecified chronic kidney disease; N18.9 Chronic kidney disease, unspecified; I25.10 Atherosclerotic heart disease of native coronary artery without angina pectoris; K21.9 Gastro-esophageal reflux disease without esophagitis; E03.9 Hypothyroidism, unspecified; Z79.899 Other long term (current) drug therapy